=== PATIENT | female | born 1975 | race Caucasian/White ===

== ENCOUNTER 2019-04-14 11:35 | Observation (INO) | payer OTHER ==
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
[2019-04-14] MEDS ORDERED: Sodium Chloride 0.9% 1,000 ML IV ONE (12:17)
[2019-04-14] MEDS ORDERED: Morphine 4 MG/ML Syringe IVPUSH ONE (12:17)
[2019-04-14] MEDS ORDERED: Sodium Chloride 0.9% 10 ML Syringe FLUSH PRN (12:17)
[2019-04-14] MEDS ORDERED: Ondansetron 4 MG/2 ML SDV IVPUSH ONE (12:17)
[2019-04-14 13:00] LABS: ANION GAP 13.8 mmol/L (5-15); CHLORIDE,CL 98 mmol/L (98-115); SODIUM,NA 136 mmol/L (136-145)
[2019-04-14] MEDS ORDERED: LORazepam 2 MG/ML SDV IVPUSH ONE (13:08)
[2019-04-14] MEDS ORDERED: Sodium Chloride 0.9% 50 ML IV ONE (14:51)
[2019-04-14] MEDS ORDERED: Iopamidol 612 MG/ML 100 ML Bottle IVPUSH ONE (14:51)
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
[2019-04-14] MEDS ORDERED: Morphine 2 MG/ML Syringe IVPUSH PRN (15:03)
[2019-04-14] MEDS ORDERED: Acetaminophen 325 MG Tab PO PRN (15:03)
[2019-04-14] MEDS ORDERED: oxyCODONE 5 MG Tab PO PRN (15:03)
[2019-04-14] MEDS ORDERED: Ondansetron 4 MG/2 ML SDV IV PRN (15:03)
[2019-04-14] MEDS ORDERED: Sodium Phosphate,Monobasic/Sodium Phosphate,Dibasic Enema 133 ML Bottle RECTAL ONE (15:10)
[2019-04-14] MEDS ORDERED: Magnesium Citrate Solution 296 ML Bottle PO ONE (15:10)
[2019-04-14] MEDS: Sodium Chloride 0.9% 1,000 ML IV SCH (16:15)
[2019-04-14] MEDS ORDERED: Ondansetron 4 MG/2 ML SDV IVPUSH PRN (18:14)
[2019-04-14] MEDS ORDERED: Naloxegol Oxalate 25 MG Tab PO ONE (18:15)
[2019-04-14] MEDS: Acetaminophen 500 MG Tab PO SCH (19:08)
[2019-04-14] MEDS ORDERED: ALUMINUM HYDROXIDE PO PRN (21:05)
[2019-04-14] MEDS ORDERED: Polyethylene Glycol 3350 Powder 17 GM Packet PO PRN (21:05)
[2019-04-14] MEDS ORDERED: rOPINIRole 1 MG Tab PO SCH (21:30)
[2019-04-14] MEDS: oxyCODONE 5 MG Tab PO PRN (21:54)
[2019-04-15] MEDS: Acetaminophen 500 MG Tab PO SCH ×2 (00:23→05:28)
[2019-04-15] MEDS: oxyCODONE 5 MG Tab PO PRN ×2 (01:42→05:48)
[2019-04-15] MEDS: Sodium Chloride 0.9% 1,000 ML IV SCH (02:25)
[2019-04-15 06:12] VITALS: BP 91/59
[2019-04-15] MEDS ORDERED: Omeprazole 20 MG Cap.CR PO SCH (07:30)
[2019-04-15] MEDS ORDERED: Cyanocobalamin (Vitamin B12) 500 MCG Tab PO SCH (09:00)
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
== END 2019-04-15 11:25 | disposition home or self-care (01) ==
LOC: KA.ED 11:35 → KA.MS 15:03
PROVIDERS: ADMIT Physician Assistant Medical; ATTEND Family Medicine
DX: K59.00 Constipation, unspecified (principal); K50.90 Crohn's disease, unspecified, without complications; E28.2 Polycystic ovarian syndrome; D64.9 Anemia, unspecified; F17.200 Nicotine dependence, unspecified, uncomplicated; Z88.8 Allergy status to other drugs, medicaments and biological substances; Z88.6 Allergy status to analgesic agent; Z98.84 Bariatric surgery status; Z79.899 Other long term (current) drug therapy
CPT/HCPCS: 36415; 74177; 80053; 81001; 83690; 84703; 85025; 96361; 96374; 96375; 96376; 99285-25; A9270-GY; G0378; J2060; J2270; J2405; J7030; J7050; Q9967